=== PATIENT | male | born 1975 | race Caucasian/White ===

== ENCOUNTER 2019-09-07 01:13 | Observation (INO) | payer BC, SELFPAY ==
[2019-09-07] VITALS (7 sets, daily range): BP systolic 131–190; BP diastolic 84–129; PULSE 88–106; RESP 19–22; TEMP 36.8; O2SAT 97–99
--- NOTE | ~2019-09-07 | XR_ITS ---
EXAMINATION: XR chest 1V portable DATE: 09/07/2019 01:44 INDICATION: Slurred speech. TECHNIQUE: A single frontal view of the chest was obtained on 2 radiographs. COMPARISON: CT abdomen and pelvis 04/24/2004 FINDINGS: There is mild atelectasis at right lung base. No pleural effusion or pneumothorax. The hear t size is normal. IMPRESSION: 1. Mild atelectasis at right lung base. Reviewed, dictated and finalized at location A. CTOR OF COMMUNICATIONS
--- NOTE | ~2019-09-07 | CT_ITS ---
EXAMINATION: CT brain wo con DATE: 09/07/2019 01:40 INDICATION: Slurred speech and dizziness. Cerebrovascular accident. TECHNIQUE: Computed tomography (CT) of the head was performed without intravenous contrast. The mA wa s adjusted according to patient size. Iterative reconstruction technique was employed. The dose-lengt h product was 681.00 mGy-cm. COMPARISON: None FINDINGS: There is no intracranial hemorrhage, acute infarction, or abnormal intracranial mass lesion . The ventricles are normal in size. The orbits are normal. There is mild mucosal thickening in the p aranasal sinuses. The mastoid air cells are normal. IMPRESSION: 1. Normal brain. Reviewed, dictated and finalized at location A. NING AND DEVELOPMENT OFFICER IMPRESSION: 1. Normal brain.
--- NOTE | 2019-09-07 01:21 | ED.NEUROSD ---
HPI - Neuro Symptoms/Deficit General Chief Complaint: Suspected CVA Stated Complaint: HIGH B/P; POSSIBLE STROKE Time Seen by Provider: 09/07/19 01:19 Source: patient, family (pt's significant other) and RN notes reviewed Mode of arrival: wheelchair Limitations: no limitations History of Present Illness HPI Narrative: Pt is a 43 y/o male with a Hx of HTN, who presents to the ED with c/o slurred speech and dizziness starting roughly 4-5 hours ago this evening. He notes that he was previously prescribed BP medication, but states that he hasn't taken any BP medications for over 1 month. Pt's significant other notes that his BP has been elevated recently, stating that his systolic pressure has been in the 260's. He notes that he developed dizziness and slurred speech 4-5 hours ago. Pt states that it felt as though he wasn't able to fully control his top lip. His significant other notes that he was having difficulty walking, and states that his face appeared asymmetric. She notes that his face appears more symmetric currently in the ED bed. Pt notes that his speech is still slurred, but currently denies any dizziness, headache, CP, SOB, nausea, vomiting, ABD pain, focal weakness, or acute numbness/tingling. He states that he currently smokes 1 PPD and occasionally uses marijuana. Onset (ago): hour(s) (4-5) Location: speech and ataxia Context: sudden onset Associated symptoms: other (dizziness (resolved); facial asymmetry (per significant other)) Treatments Prior to Arrival: none Related Data Allergies Allergy/AdvReac Type Severity Reaction Status Date / Time Penicillins Allergy Unknown Unknown Verified 09/07/19 01:31 Review of Systems Review of Systems: All systems reviewed & are unremarkable except as noted in HPI and below Cardiovascular: Cardiovascular: Denies chest pain Respiratory: Respiratory: Denies dyspnea Gastrointestinal: Gastrointestinal: Denies abdominal pain, Denies nausea and Denies vomiting Neurologic: Reports Abnormal speech present (slurred speech), Reports abnormal gait, Reports dizziness (resolved), Denies headache(s), Denies focal weakness, Denies numbness, Denies tingling and Reports other (facial asymmetry (per significant other)) PMFSH Past Medical History Medical History Carpal tunnel syndrome on both sides HTN (hypertension) Kidney stones Leg fracture, right Right arm fracture Surgical History Surgical History Hx of arthroscopy of right knee Hx of carpal tunnel repair rt wrist Family History Family History (Updated 09/06/12 @ 14:45 by DOCTOR UNKNOWN) Other Carcinoma of colon Diabetes mellitus Family history of Alzheimer's disease Family history of coronary artery disease Family history of lung cancer Social History Social History Smoking packs per day: 1 Smoking cigarettes per day: 20.0 Smoking status: Current every day smoker Alcohol intake: current Substance use type: marijuana Exam Narrative: Exam Narrative: GENERAL: well-nourished, and in no acute distress. HEAD: Normocephalic, atraumatic EYES: PERRLA and EOMI, conjunctiva clear without discharge NOSE: Nares clear, no rhinorrhea or epistaxis THROAT:Mucous membranes moist, Oropharynx normal without erythema, exudate, peritonsillar swelling or fluctuance NECK: Supple, without lymphadenopathy or mass RESPIRATORY: No respiratory distress, Airway patent, Respirations non-labored, Clear to auscultation without rales, rhonchi or wheeze HEART: Regular rate and rhythm. No murmur heard. Normal peripheral pulses. ABDOMEN: Soft, nontender, nondistended, normal active bowel sounds. No masses. No rebound or guarding, No organomegaly. EXTREMITIES: No edema, normal strength with full range of motion. SKIN: Warm,diaphoretic, normal color without rash NEURO: Alert and orien
--- NOTE | 2019-09-07 01:29 | ECG_ITS ---
Measurements Intervals [place] Rate: 106 P: 48 FL: 140 QRS: -45 QRSD: 105 T: 78 QT: 357 QTc: 475 Interpretive Statements SINUS TACHYCARDIA LEFT AXIS DEVIATION DELAYED PRECORDIAL R/S TRANSITION INFERIOR INFARCT, AGE INDETERMINATE NONSPECIFIC ST & T-WAVE ABNORMALITY- LATERAL LEADS ABNORMAL ECG Electronically Signed On 09-07-2019 6:51:01 SOLAR ELECTRIC INSTALLER by Mohinder Felipe D.O.
[2019-09-07 01:40] LABS: Basophils Absolute Auto 0.1 K/mm3 (0.0-0.1); Basophils Percent Auto 0.7 % (0.2-1.2); Eosinophils Absolute Auto 0.1 K/mm3 (0-0.3); Eosinophils Percent Auto 1.3 % (0-4.4); Hematocrit 46.2 % (42.0-52.0); Hemoglobin 15.7 g/dL (14.0-18.0); Immature Granulocyte Absolute 0.03 K/mm3 (0.00-0.031); Immature Granulocyte Percent A 0.3 % (0-0.5); Lymphocytes Absolute Auto 3.44 K/mm3 (0.9-3.2); Lymphocytes Percent Auto 32.9 % (18.3-44.2); Mean Corpuscular Volume 94.1 fl (80-100); Mean Platelet Volume 11.7 fl (7.4-10.4); Monocytes Absolute Auto 1.1 K/mm3 (0.1-0.6); Monocytes Percent Auto 10.5 % (2.6-8.5); Neutrophils Absolute Auto 5.7 K/mm3 (1.3-6.7); Neutrophils Percent Auto 54.3 % (45.5-73.1); Platelet Count Result 248 k/mm3 (150-375); Red Blood Count 4.91 M/mm3 (4.6-6.20); Red Cell Distribution Width 12.6 % (11.5-14.5); White Blood Count 10.5 K/mm3 (4.5-10.0)
[2019-09-07 02:35] LABS: Ethanol < 10 mg/dL (<10)
[2019-09-07 02:36] LABS: Alanine Aminotransferase 33 U/L (4-50); Albumin Level 4.3 g/dL (3.5-5.1); Alkaline Phosphatase 81 U/L (38-126); Aspartate Amino Transferase 38 U/L (17-59); Bilirubin,Total 0.5 mg/dL (0.2-1.3); Blood Urea Nitrogen 16 mg/dL (9-20); Calcium 9.5 mg/dL (8.4-10.2); Carbon Dioxide 26 mmol/L (22-30); Chloride 105 mmol/L (98-107); Estimated CRCL calculation 107 ml/min; Estimated Glomerular Filt Rate > 60; Glucose 124 mg/dL (75-110); Potassium 3.6 mmol/L (3.4-5.0); Sodium 139 mmol/L (137-145)
--- NOTE | 2019-09-07 02:36 | PC.NURSE ---
Patient and his SO state patient is getting really anxious and has really bad restless legs. EDP notified.
[2019-09-07 02:46] LABS: Troponin I < 0.012 ng/mL (0.000-0.034)
[2019-09-07] MEDS: LABETALOL HCL INJ 100 MG/20 ML VIAL 20 MG IV PUSH (02:55)
[2019-09-07] MEDS: LORAZEPAM INJ 2 MG/ML VIAL 0.5 MG IV PUSH (02:55)
[2019-09-07 02:57] LABS: Add Urine Microscopic? YES; Appearance Urine Clear (Clear); Bacteria Urine Trace /hpf; Bilirubin Urine Negative (Negative); Blood Urine 2+ (Negative); Calcium Oxalate Crystals Urine Present /hpf; Color Urine Yellow (Yellow); Glucose Urine UA Negative (Negative); Ketones Urine Negative (Negative); Leukocyte Esterase Ur 1+ LEU/UL (Negative); Mucus Urine Moderate /lpf; Nitrate Urine Negative (Negative); Protein Urine 2+ mg/dL (Negative); RBC Urine >75 /hpf (0-2); Specific Grav Ur 1.025 (1.001-1.035); Squamous Epithelial Cell Urine Rare /hpf (Few); Urobilinogen Urine Negative mg/dL (<2.0); WBC Urine 31-50 /hpf
[2019-09-07 03:01] LABS: INR 0.9; Prothrombin Time 11.9 Seconds (11.1-14.7)
[2019-09-07 03:02] LABS: Partial Thromboplastin Time 28.5 SECONDS (22.3-36.8)
[2019-09-07 03:11] LABS: Barbiturate Screen Urine Negative (Negative); Benzodiazepines Screen Urine Negative (Negative)
[2019-09-07 03:27] LABS: Cannabinoid Screen Urine Positive (Negative); Cocaine Screen Urine Negative (Negative); Methadone Screen Urine Negative (Negative); Opiate Screen Urine Negative (Negative); Phencyclidine Screen Urine Negative (Negative)
[2019-09-07] MEDS: ASPIRIN 81 MG CHEWABLE TABLET 324 MG PO (04:07)
[2019-09-07 04:20] LABS: Amphetamine Screen Urine Positive (Negative)
--- NOTE | 2019-09-07 05:06 | PC.NURSE ---
Patient called this nurse into room and stated he wanted to leave and that I have so much I have to do. Patient was informed that he has been admitted and more testing was planned. Patient stated he wanted to leave and go home. This nurse and EDP informed patient on the risks of leaving AMA as well as the benefits of staying. Patient still stated he was leaving. Patient's IV was removed and patient left before any discharge papers were available. Patient had his with him.
[2019-09-07 14:21] LABS: Glucose Point of Care 159 (65-105)
== END 2019-09-07 05:35 | disposition left against medical advice (07) ==
LOC: ANHED 01:20 → ANH3MEDSUR 04:21
PROVIDERS: Admitting Provider Family Medicine; Emergency Provider General Practice; PCP Nurse Practitioner Family; Visit Provider Family Medicine
DX: I16.9 Hypertensive crisis, unspecified (principal); I10 Essential (primary) hypertension; R47.81 Slurred speech; R26.89 Other abnormalities of gait and mobility; F19.10 Other psychoactive substance abuse, uncomplicated; F17.210 Nicotine dependence, cigarettes, uncomplicated
CPT/HCPCS: 36415; 70450; 71045; 80053; 80307; 81001; 82948; 84484; 85025; 85610; 85730; 87086; 93005; 96374; 96375; 99199; 99284; A9270; J2060

== ENCOUNTER 2020-08-07 15:01 | Emergency (ER) | payer OTHER, SELFPAY ==
--- NOTE | ~2020-08-07 | XR_ITS ---
EXAMINATION: XR elbow RT min 3V DATE: 08/07/2020 15:23 INDICATION: Right elbow pain. TECHNIQUE: 3 views of right elbow were obtained. COMPARISON: None. FINDINGS: Bone alignment is normal. No fracture. There is mild osteoarthritis of the elbow joint. No elbow joint effusion. There is soft tissue swelling overlying the olecranon. IMPRESSION: 1. Mild elbow joint osteoarthritis. 2. Olecranon bursitis. Reviewed, dictated and finalized at location A. M SHOVEL RUNNER
[2020-08-07 15:21] VITALS: BP 172/101; PULSE 106; RESP 20; TEMP 36.1; O2SAT 98
--- NOTE | 2020-08-07 16:44 | ED.UPPEXIN ---
HPI - Extremity Injury (Upper) General Chief Complaint: Extremity Injury, Upper Stated Complaint: fall, right arm pain Time Seen by Provider: 08/07/20 16:43 History of Present Illness HPI narrative: 44 yo male presents to the ED with elbow pain. He reports that he slipped and fell onto his right elbow. He has severe pain in the right elbow. He denies previous injury. Related Data Home Medications Medication Instructions Recorded Confirmed hydrochlorothiazide 08/07/20 08/07/20 metoprolol tartrate 08/07/20 Allergies Allergy/AdvReac Type Severity Reaction Status Date / Time Penicillins Allergy Unknown Unknown Verified 08/07/20 16:22 Review of Systems Review of Systems: All systems reviewed & are unremarkable except as noted in HPI and below Constitutional: Constitutional: Denies chills, Denies fever(s) and Denies weakness Cardiovascular: Cardiovascular: Denies chest pain Respiratory: Respiratory: Denies dyspnea Gastrointestinal: Gastrointestinal: Denies abdominal pain and Denies nausea Neurologic: Denies dizziness, Denies numbness and Denies weakness [facility] Past Medical History Medical History (Updated 08/08/20 @ 00:00 by Nilton Boyce) Carpal tunnel syndrome on both sides HTN (hypertension) Kidney stones Leg fracture, right Right arm fracture Surgical History Surgical History Hx of arthroscopy of right knee Hx of carpal tunnel repair rt wrist Family History Family History (Updated 09/06/12 @ 14:45 by DOCTOR UNKNOWN) Other Carcinoma of colon Diabetes mellitus Family history of Alzheimer's disease Family history of coronary artery disease Family history of lung cancer Social History Social History (Updated 08/08/20 @ 19:[address] MD) Smoking packs per day: 1 Smoking cigarettes per day: 20.0 Smoking status: Current every day smoker Alcohol intake: current Substance use type: marijuana and IV drugs Gender identity (if verbalized by the patient): Male Exam Const: General: no acute distress and alert Orientation/consciousness: patient oriented x3 Other: diaphoretic HENMT: Head: normal to inspection Eyes: Pupils: Equal, round and reactive pupils present Resp: Effort & Inspection: normal respiratory effort Auscultation: clear to auscultation bilaterally Cardio: Rate: tachycardic Rhythm: regular rhythm GI: GI Palp: Yes Soft to palpation Auscultation: Hyperactive bowel sounds present Skin: General skin exam: normal color Other: diaphoretic Neuro: General: patient oriented x3, moves all extremities and CN's II-XI intact bilaterally Speech: normal speech Extrem: Other: Tenderness over triceps tendon. No objective sign of injury. Course Vital Signs Vital signs: Vital Signs Temperature 36.1 C L 08/07/20 15:21 Pulse Rate 106 H 08/07/20 15:21 Respiratory Rate 20 08/07/20 15:21 Blood Pressure 172/101 H 08/07/20 15:21 Pulse Oximetry 98 08/07/20 15:21 Temperature 36.1 C L 08/07/20 15:21 Pulse Rate 106 H 08/07/20 15:21 Respiratory Rate 20 08/07/20 15:21 Blood Pressure 172/101 H 08/07/20 15:21 Pulse Oximetry 98 08/07/20 15:21 MDM - Extremity Injury (Upper) MDM Narrative Medical decision making narrative: X-ray shows bursitis. Pain seems out of proportion to the injury. On review of the chart he does have h/o IV drug abuse. This is likely the reason Medical Records Attestation: I reviewed the patient's medical records. Imaging Data Radiologist's impression: ITS Impressions Elbow X-Ray 08/07/20 15:28 IMPRESSION: 1. Mild elbow joint osteoarthritis. 2. Olecranon bursitis. Discharge Plan Discharge Clinical Impression: Traumatic bursitis Patient Disposition: Home, Self-Care Condition: Stable Instructions: Elbow Bursitis (ED) Prescriptions: No Action metoprolol tartrate 50 mg tablet RF: 0 hydrochlorothia
[2020-08-07] MEDS: HYDROcodone/acetaminophen (*CRX) 5-325 MG TABLET 1 TAB PO (17:17)
== END 2020-08-07 17:31 | disposition home or self-care (01) ==
PROVIDERS: Emergency Provider Emergency Medicine; PCP Nurse Practitioner Family
DX: M70.21 Olecranon bursitis, right elbow (principal); I10 Essential (primary) hypertension; Z87.442 Personal history of urinary calculi; F17.210 Nicotine dependence, cigarettes, uncomplicated; M19.021 Primary osteoarthritis, right elbow; W01.0XXA Fall on same level from slipping, tripping and stumbling without subsequent striking against object, initial encounter
CPT/HCPCS: 73080; 99283; A9270

== ENCOUNTER 2021-01-27 12:25 | Emergency (ER) | payer OTHER, SELFPAY ==
[2021-01-27 12:34] VITALS: BP 160/111; PULSE 109; RESP 24; TEMP 37.2; O2SAT 98
--- NOTE | 2021-01-27 12:34 | ED.WOUNDLAC ---
HPI - Wound/Laceration General Chief Complaint: Wound/Laceration Stated Complaint: Gash on Left Leg Time Seen by Provider: 01/27/21 12:30 Source: patient and RN notes reviewed Mode of arrival: ambulatory Limitations: no limitations History of Present Illness HPI narrative: 45-year-old male presents to the [facility] with a wound to the left lower leg anterior. States that he hit it on the running boards of a truck. States that the wound occurred approximately 2 weeks ago. 1 week ago started becoming red and painful. Drainage started today. Has been using peroxide and Neosporin Related Data Home Medications Medication Instructions Recorded Confirmed hydrochlorothiazide 25 mg PO DAILY 08/07/20 08/07/20 metoprolol tartrate 100 mg PO DAILY 01/27/21 01/27/21 Allergies Allergy/AdvReac Type Severity Reaction Status Date / Time Penicillins Allergy Unknown Unknown Verified 01/27/21 12:33 Review of Systems Review of Systems: All systems reviewed & are unremarkable except as noted in HPI and below Constitutional: Constitutional: Reports no additional constitutional complaints, Denies chills and Denies fever(s) Eyes: Eyes: Reports no additional eye complaints ENT: Reports system reviewed and no additional complaints, except as documented Cardiovascular: Cardiovascular: Reports no additional cardiovascular complaints Respiratory: Respiratory: Reports no additional respiratory complaints Musculoskeletal: Musculoskeletal: Reports no additional musculoskeletal complaints, Denies back pain, Denies arthralgias and Denies joint swelling Integumentary/Breasts: Skin/Breast: Reports as per HPI and Reports erythema (left anterior lower leg) Neurologic: Reports system reviewed and no additional complaints, except as documented Psychiatric: Psychiatric: Reports no additional psychiatric complaints Allergic/Immunologic: Allergic/Immunologic: Reports no additional allergic/immunologic complaints [facility] Past Medical History Medical History (Updated 01/28/21 @ 00:01 by Nilton Boyce) Carpal tunnel syndrome on both sides HTN (hypertension) Kidney stones Leg fracture, right Right arm fracture Surgical History Surgical History Hx of arthroscopy of right knee Hx of carpal tunnel repair rt wrist Family History Family History (Updated 09/06/12 @ 14:45 by DOCTOR UNKNOWN) Other Carcinoma of colon Diabetes mellitus Family history of Alzheimer's disease Family history of coronary artery disease Family history of lung cancer Social History Social History (Updated 08/08/20 @ 19:[address] MD) Smoking packs per day: 1 Smoking cigarettes per day: 20.0 Smoking status: Current every day smoker Alcohol intake: current Substance use type: marijuana and IV drugs Gender identity (if verbalized by the patient): Male Comments At the time of my signature, I reviewed and agree with the nursing past medical, surgical, social, and family history. There is no relevant family history pertinent to the patient complaint. Exam Const: General: healthy appearing, no acute distress and alert Nutritional Appearance: well nourished Orientation/consciousness: patient oriented x3 Limitations: no limitations HENMT: Head: normal to inspection Eyes: Pupils: Equal, round and reactive pupils present Neck: Neck: normal visual inspection, no lymphadenopathy and no meningeal signs Chest: Chest palpation & inspection: normal inspection of the chest Resp: Effort & Inspection: normal respiratory effort and no use of accessory muscles Auscultation: clear to auscultation bilaterally, no crackles, no rales, no rhonchi and no wheezes Cardio: Rate: regular rate Rhythm: regular rhythm Back/Spine/Pelvis: Back: no CVA tenderness Skin: Wounds: wounds noted left anterior lower leg drainage purulent and with surrounding erythema Other: 2 x 1 cm open area that is scabbe
[2021-01-27 13:19] VITALS: BP 147/104; PULSE 102; RESP 20; O2SAT 98
== END 2021-01-27 13:27 | disposition home or self-care (01) ==
PROVIDERS: Emergency Provider Nurse Practitioner; PCP Nurse Practitioner Family
DX: L08.9 Local infection of the skin and subcutaneous tissue, unspecified (principal); S81.802A Unspecified open wound, left lower leg, initial encounter; W22.8XXA Striking against or struck by other objects, initial encounter; F17.210 Nicotine dependence, cigarettes, uncomplicated; I10 Essential (primary) hypertension
CPT/HCPCS: 99213; G0463

== ENCOUNTER 2021-04-14 06:06 | Emergency (ER) | payer OTHER, SELFPAY ==
--- NOTE | ~2021-04-14 | XR_ITS ---
XR tibia fibula LT 2V DATE: 04/14/2021 09:52 INDICATION: Left lower leg injury, pain TECHNIQUE: AP and lateral views COMPARISON: None FINDINGS: Prominent superior pole patellar enthesopathy at the quadriceps tendon insertion. Normal alignment at the knee and ankle joints. No fracture, dislocation, periosteal reaction or bone destruction of the tibia or fibula. IMPRESSION: Superior pole patellar enthesopathy No fracture or dislocation Reviewed, dictated and finalized at location B.
--- NOTE | ~2021-04-14 | US_ITS ---
US venous doppler [facility] DATE: 04/14/2021 08:20 INDICATION: Leg pain for 2 months. Open skin wound. TECHNIQUE: Real-time imaging and Doppler analysis COMPARISON: None FINDINGS: There is spontaneous and phasic flow and normal augmentation and color flow signal and norm al compression of the femoral, popliteal and posterior tibial veins veins of the left lower extremity . The peroneal veins are not well demonstrated due to edema in the area. IMPRESSION: No deep venous thrombosis is demonstrated; limited visualization of the peroneal veins du e to edema Reviewed, dictated and finalized at Location A. Reviewed, dictated and finalized at location A. IMPRESSION: No deep venous thrombosis is demonstrated; limited visualization of the peroneal veins due to edema
[2021-04-14 06:22] VITALS: BP 180/140; PULSE 107; RESP 16; TEMP 37.2; O2SAT 94
[2021-04-14 07:25] VITALS: PULSE 97; RESP 22; O2SAT 98
--- NOTE | 2021-04-14 07:47 | ED.GENADULT ---
HPI - General Adult General Chief complaint: Extremity Problem,Nontraumatic Stated complaint: Left ankle pain Time Seen by Provider: 04/14/21 07:06 Source: patient History of Present Illness HPI narrative: Patient is a 45 y/o male complaining of left lower leg pain for last 2 months. He states that he was hit by a board approximately 2 month ago which caused a open wound. He subsequently underwent surgery for debridement at outside hospital. He describes his pain as burning and rates it as 1/10. However, he states that his pain goes up to 10/10 sometimes. There is no known alleviating or exacerbating factor. He still has open wound on left lower leg with surround redness. He has some left foot swelling. He has history of hypertension, but has been non compliant with medication for a while. He is not sure what BP medication he is supposed to be on. Related Data Home Medications Medication Instructions Recorded Confirmed hydrochlorothiazide 25 mg PO DAILY 08/07/20 08/07/20 metoprolol tartrate 100 mg PO DAILY 01/27/21 01/27/21 Allergies Allergy/AdvReac Type Severity Reaction Status Date / Time Penicillins Allergy Unknown Unknown Verified 04/14/21 06:25 Review of Systems Constitutional: Constitutional: Denies chills, Denies fever(s), Denies headache(s) and Denies weakness Eyes: Eyes: Denies blurry vision ENT: Denies headache(s) and Denies neck pain Cardiovascular: Cardiovascular: Denies chest pain and Denies dyspnea Respiratory: Respiratory: Denies cough and Denies dyspnea Gastrointestinal: Gastrointestinal: Denies abdominal pain, Denies diarrhea, Denies nausea and Denies vomiting Genitourinary: Genitourinary: Denies hematuria and Denies dysuria Musculoskeletal: Musculoskeletal: Reports as per HPI, Denies back pain, Denies neck pain and Reports other (left leg pain) Integumentary/Breasts: Skin/Breast: Reports erythema Neurologic: Denies headache(s) and Denies weakness PMFSH Past Medical History Medical History Carpal tunnel syndrome on both sides HTN (hypertension) Kidney stones Leg fracture, right Right arm fracture Surgical History Surgical History Hx of arthroscopy of right knee Hx of carpal tunnel repair rt wrist Family History Family History Other Carcinoma of colon Diabetes mellitus Family history of Alzheimer's disease Family history of coronary artery disease Family history of lung cancer Social History Social History Smoking packs per day: 1 Smoking cigarettes per day: 20.0 Smoking status: Current every day smoker Alcohol intake: current Substance use type: marijuana and IV drugs Gender identity (if verbalized by the patient): Male Exam Const: General: no acute distress and well developed Orientation/consciousness: oriented to person, oriented to place, oriented to time and patient oriented x3 HENMT: Head: normocephalic Ears: external ears normal General nose exam: Normal external nose present Eyes: General: appearance normal, both eyes and all related structures Conjunctivae: conjunctivae normal Neck: Neck: normal visual inspection and full ROM Chest: Chest palpation & inspection: normal inspection of the chest and no tenderness Resp: Effort & Inspection: normal respiratory effort Auscultation: clear to auscultation bilaterally Cardio: Rate: regular rate Rhythm: regular rhythm GI: GI Palp: No abdominal tenderness and Yes Soft to palpation Skin: General skin exam: normal color, turgor normal and erythema (left lower leg surround the wound) Wounds: wounds noted (open wound left lower leg, no drainage) Neuro: General: oriented to person, oriented to place, oriented to time and patient oriented x3 Cognition (Neuro): normal cognition Extrem: General: no
[2021-04-14 09:20] LABS: Anion Gap 9 mmol/L (8-16); Blood Urea Nitrogen 15 mg/dL (9-20); CRP 1.2 mg/dL (<1.0); Calcium 8.8 mg/dL (8.4-10.2); Carbon Dioxide 29 mmol/L (22-30); Chloride 103 mmol/L (98-107); Estimated CRCL calculation 106 ml/min; Estimated Glomerular Filt Rate > 60; Glucose 125 mg/dL (65-110); Potassium 3.7 mmol/L (3.4-5.0); Sodium 141 mmol/L (137-145)
[2021-04-14 09:22] LABS: Basophils Percent Auto 0.4 % (0.2-1.2); Eosinophils Absolute Auto 0.1 K/mm3 (0-0.3); Eosinophils Percent Auto 1.3 % (0-4.4); Hemoglobin 14.2 g/dL (14.0-18.0); Immature Granulocyte Absolute 0.03 K/mm3 (0.00-0.031); Immature Granulocyte Percent A 0.3 % (0-0.5); Lymphocytes Absolute Auto 2.13 K/mm3 (0.9-3.2); Lymphocytes Percent Auto 21.1 % (18.3-44.2); Mean Corpuscular HGB Conc 33.8 g/dl (32-36); Mean Corpuscular Hemoglobin 32.9 pg (26-34); Mean Corpuscular Volume 97.2 fl (80-100); Mean Platelet Volume 11.7 fl (7.4-10.4); Monocytes Percent Auto 9.6 % (2.6-8.5); Neutrophils Absolute Auto 6.8 K/mm3 (1.3-6.7); Neutrophils Percent Auto 67.3 % (45.5-73.1); Platelet Count Result 194 k/mm3 (150-375); Red Blood Count 4.32 M/mm3 (4.6-6.20); Red Cell Distribution Width 13.2 % (11.5-14.5); White Blood Count 10.1 K/mm3 (4.5-10.0)
[2021-04-14 09:48] LABS: Erythrocyte Sedimentation Rate 25 mm/hr (0-20)
[2021-04-14] MEDS: hydroCHLOROthiazide 25 MG TABLET PO (10:10)
[2021-04-14] MEDS: lisinopriL 20 MG TABLET PO (10:10)
--- NOTE | 2021-04-14 10:46 | PC.NURSE ---
Pt states that he does have Hx of IV drug use, but has been clean from IV drugs for about 10yrs. admits to snorting cocaine on occasion for fun
[2021-04-14 11:35] VITALS: BP 203/155; PULSE 92; RESP 20; O2SAT 97
[2021-04-14 13:26] VITALS: BP 164/133; PULSE 94; RESP 16; O2SAT 100
== END 2021-04-14 13:28 | disposition home or self-care (01) ==
PROVIDERS: Emergency Provider Emergency Medicine; PCP Nurse Practitioner Family
DX: L03.116 Cellulitis of left lower limb (principal); I10 Essential (primary) hypertension; F17.210 Nicotine dependence, cigarettes, uncomplicated; Z87.442 Personal history of urinary calculi
CPT/HCPCS: 36415; 73590; 80048; 85025; 85652; 86140; 87040; 93971; 96365; 96367; 99284; A9270; J0696; J3370

== ENCOUNTER 2022-08-01 20:36 | Emergency (ER) | payer OTHER, SELFPAY ==
[2022-08-01] VITALS (14 sets, daily range): BP systolic 159–166; BP diastolic 96–102; PULSE 74–82; RESP 13–26; TEMP 36.4; O2SAT 87–96
--- NOTE | ~2022-08-01 | CT_ITS ---
EXAMINATION: CTA chest PE protocol DATE: 08/02/2022 09:11 HYPERBARIC NURSE INDICATION: Shortness of breath. Elevated d-dimer. TECHNIQUE: Computed tomographic angiography (CTA) of the chest was performed with 100 mL Omnipaque-35 0 intravenous contrast. The dose-length product was 891.27 mGy-cm. Maximum intensity projection 3D-re constructions of the aorta and other arteries were constructed by the technologist on a separate work station. Automated exposure control and iterative reconstruction technique were employed. COMPARISON: None. FINDINGS: Study is technically adequate without evidence for pulmonary embolism. Cardiomegaly. No sig nificant pleural or pericardial effusion. No thoracic lymphadenopathy. Fatty infiltration of the live r. Colonic diverticulosis. No focal airspace consolidation. No endobronchial lesions. There is depend ent atelectasis. No pneumothorax. No suspicious pulmonary nodules. IMPRESSION: 1. No acute cardiopulmonary disease. 2: Cardiomegaly. Reviewed, dictated and finalized at location A. RBARIC NURSE
--- NOTE | ~2022-08-01 | XR_ITS ---
EXAMINATION: XR chest 2V DATE: 08/01/2022 21:16 INDICATION: Chest pain. Shortness of breath. TECHNIQUE: Frontal and lateral views of the chest were obtained. COMPARISON: Chest single view 09/07/2019 FINDINGS: The chest demonstrates clear lungs without pneumonia, pleural effusion, or pneumothorax. Th e heart size is normal. There is an old healed fracture of left clavicle. IMPRESSION: 1. No acute cardiopulmonary disease. Reviewed, dictated and finalized at location A. [employer] SUPERVISOR
--- NOTE | 2022-08-01 20:39 | ECG_ITS ---
Measurements Intervals [place] Rate: 77 P: 15 CT: 195 QRS: -44 QRSD: 102 T: 38 QT: 434 QTc: 492 Interpretive Statements SINUS RHYTHM INCOMPLETE RIGHT BUNDLE BRANCH BLOCK POOR R WAVE PROGRESSION, ANTERIOR LEADS INFERIOR INFARCT, AGE INDETERMINATE BORDERLINE T WAVE ABNORMALITY- ANTERIOR LEADS BASELINE WANDER- V1 ABNORMAL ECG COMPARED TO ECG 09/07/2019 01:20:55 SINUS RHYTHM NOW PRESENT Electronically Signed On 08-02-2022 7:39:05 REGIONAL SALES REPRESENTATIVE by Mohinder Felipe D.O.
--- NOTE | 2022-08-01 21:07 | PC.NURSE ---
Patient taken to xray via stretcher at this time.
[2022-08-01 21:19] LABS: Basophils Absolute Auto 0.1 K/mm3 (0.0-0.1); Basophils Percent Auto 0.4 % (0.2-1.2); Eosinophils Absolute Auto 0.1 K/mm3 (0-0.3); Eosinophils Percent Auto 0.9 % (0-4.4); Hematocrit 49.2 % (42.0-52.0); Hemoglobin 16.8 g/dL (14.0-18.0); Immature Granulocyte Absolute 0.04 K/mm3 (0.00-0.031); Immature Granulocyte Percent A 0.3 % (0-0.5); Lymphocytes Absolute Auto 4.68 K/mm3 (0.9-3.2); Lymphocytes Percent Auto 33.6 % (18.3-44.2); Mean Corpuscular HGB Conc 34.1 g/dl (32-36); Mean Corpuscular Hemoglobin 32.8 pg (26-34); Mean Corpuscular Volume 96.1 fl (80-100); Mean Platelet Volume 11.4 fl (7.4-10.4); Monocytes Absolute Auto 1.3 K/mm3 (0.1-0.6); Neutrophils Absolute Auto 7.8 K/mm3 (1.3-6.7); Neutrophils Percent Auto 55.8 % (45.5-73.1); Platelet Count Result 241 k/mm3 (150-375); Red Blood Count 5.12 M/mm3 (4.6-6.20); Red Cell Distribution Width 13.1 % (11.5-14.5); White Blood Count 13.9 K/mm3 (4.5-10.0)
[2022-08-01 21:22] LABS: Prothrombin Time 12.5 Seconds (11.1-14.7)
[2022-08-01 21:23] LABS: Chloride 102 mmol/L (98-107); Partial Thromboplastin Time 25.6 SECONDS (22.3-36.8)
--- NOTE | 2022-08-01 21:24 | ED.SOB ---
HPI - SOB/Dyspnea General Chief Complaint: Shortness of Breath/Dyspnea <NINA Gonzalez Last Filed: 08/02/22 02:31> Stated Complaint: Shortness of Breath <NINA Gonzalez Last Filed: 08/02/22 02:31> Time Seen by Provider: 08/01/22 20:40 <NINA Gonzalez Last Filed: 08/02/22 02:31> Source: patient <NINA Gonzalez Last Filed: 08/02/22 02:31> Mode of arrival: ambulatory <NINA Gonzalez Last Filed: 08/02/22 02:31> Limitations: no limitations <NINA Gonzalez Last Filed: 08/02/22 02:31> History of Present Illness HPI Narrative: This is a 46 year old male that presents to the ER for shortness of breath. Ongoing since yesterday. Reports he feels like he can't catch his breath. Reports pain with deep breathing. Reports he was started on his blood pressure medications again yesterday after being off of them for several months and is attributing his symptoms to this. Reports some ongoing lower extremity edema. Denies fever or cough. <NINA Gonzalez Last Filed: 08/02/22 02:31> Related Data Home Medications: Home Medications Medication Instructions Recorded Confirmed hydrochlorothiazide 25 mg tablet 25 mg PO DAILY 08/07/20 08/07/20 metoprolol tartrate 100 mg tablet 100 mg PO DAILY 01/27/21 01/27/21 <NINA Gonzalez Last Filed: 08/02/22 02:31> Allergies/Adverse Reactions: Allergies Allergy/AdvReac Type Severity Reaction Status Date / Time Penicillins Allergy Unknown Unknown Verified 04/14/21 06:25 <NINA Gonzalez Last Filed: 08/02/22 02:31> Review of Systems Review of Systems: CONSTITUTIONAL: Denies fever CARDIOVASCULAR: Reports chest pain, and edema. RESPIRATORY: Reports dyspnea. Denies cough <NINA Gonzalez Last Filed: 01/29/23 02:31> All systems reviewed & are unremarkable except as noted in HPI and below <Soledad Saucedo PA-C - Last Filed: 08/02/22 02:31> [facility] Past Medical History Medical History: Medical History Carpal tunnel syndrome on both sides HTN (hypertension) Kidney stones Leg fracture, right Right arm fracture <Soledad Saucedo PA-C - Last Filed: 08/02/22 02:31> Surgical History Surgical History: Surgical History Hx of arthroscopy of right knee Hx of carpal tunnel repair rt wrist <NINA Gonzalez Last Filed: 08/02/22 02:31> Family History Family History: Family History Other Carcinoma of colon Diabetes mellitus Family history of Alzheimer's disease Family history of coronary artery disease Family history of lung cancer <NINA Gonzalez Last Filed: 08/02/22 02:31> Social History Social History: Social History Smoking packs per day: 1 Smoking cigarettes per day: 20.0 Smoking status: Current every day smoker Alcohol intake: current Substance use type: marijuana and IV drugs Gender identity (if verbalized by the patient): Male <NINA Gonzalez Last Filed: 08/02/22 02:31> Exam Narrative: GENERAL: Well-appearing, well-nourished, and in no acute distress. HEAD: Normocephalic, atraumatic. EYES: EOMI. ENT: Nares clear, no rhinorrhea or epistaxis. Mucous membranes moist. Oropharynx without tonsillar hypertrophy exudate or other lesions. CHEST: Clear to auscultation. No respiratory distress. No wheezes rales or rhonchi HEART: Regular rate and rhythm. No murmur heard. Normal peripheral pulses. EXTREMITIES: Normal range of motion. Mild nonpitting edema to the bilateral lower extremities SKIN: Warm, dry, no rash. NEURO: No focal deficits. Alert and oriented x3. PSYCH: Normal mood and affect <Soledad Saucedo PA-C - Last Filed: 08/02/22 02:31> Course Course Emergency Course: [place]
[2022-08-01 21:25] LABS: NT Pro B Type Natriuretic Pept 788 pg/mL (19.9-100)
[2022-08-01 21:26] LABS: Alanine Aminotransferase 38 U/L (6-50); Alkaline Phosphatase 82 U/L (38-126); Anion Gap 8 mmol/L (8-16); Aspartate Amino Transferase 39 U/L (17-59); Bilirubin,Total 0.5 mg/dL (0.2-1.3); Blood Urea Nitrogen 20 mg/dL (9-20); Calcium 8.7 mg/dL (8.4-10.2); Carbon Dioxide 29 mmol/L (22-30); Estimated CRCL calculation 90 ml/min; Estimated Glomerular Filt Rate > 60; Glucose 127 mg/dL (65-110); Sodium 139 mmol/L (137-145)
[2022-08-01 21:55] LABS: Lipase 81 U/L (23-300)
[2022-08-01] MEDS: ONDANSETRON INJ 4 MG/2 ML VIAL IV PUSH (22:01)
[2022-08-01 22:04] LABS: D Dimer 0.57 ug/mL (<0.48)
[2022-08-01 22:15] LABS: Troponin I 0.014 ng/mL (0.000-0.034)
[2022-08-02 00:23] VITALS: PULSE 79
[2022-08-02 00:30] VITALS: PULSE 77
[2022-08-02 00:51] VITALS: PULSE 77; RESP 19
[2022-08-02 01:09] VITALS: PULSE 81; RESP 26
[2022-08-02 01:16] VITALS: PULSE 82; RESP 23; O2SAT 96
--- NOTE | 2022-08-02 01:30 | PC.NURSE ---
Phlebotomy called to draw 3 hour. Multiple attempts unsuccessful.
--- NOTE | 2022-08-02 01:38 | PC.NURSE ---
Plebotomy here to draw patient.
--- NOTE | 2022-08-02 01:51 | PC.NURSE ---
Patient tough stick, unable to draw delta trop by this RN, and 2 botanical technical officer as well as phlebotomy. ERP notified.
--- NOTE | 2022-08-02 02:19 | PC.NURSE ---
Patient states he wants to leave AMA. Patient told ERP. Patient states I'll sign what I need to but I don't want to stay. Patient informed of the risks of leaving and that he required oxygen while in the ED. Patient a/ox x3. Patient states I know, I want to leave. I know the risks. Patient signed AMA form. Patient has family here with him.
[2022-08-02 02:39] LABS: Troponin I 0.022 ng/mL (0.000-0.034)
== END 2022-08-02 02:31 | disposition left against medical advice (07) ==
PROVIDERS: Physician Assistant; Emergency Provider Emergency Medicine; PCP Nurse Practitioner Family
DX: R06.01 Orthopnea (principal); I10 Essential (primary) hypertension; Z87.442 Personal history of urinary calculi; F17.210 Nicotine dependence, cigarettes, uncomplicated; T46.5X5A Adverse effect of other antihypertensive drugs, initial encounter; I45.10 Unspecified right bundle-branch block; R94.31 Abnormal electrocardiogram [ECG] [EKG]
CPT/HCPCS: 36415; 71046; 71275; 80053; 83690; 83880; 84484; 85025; 85380; 85610; 85730; 93005; 96374; 99284; J2405; Q9967

== ENCOUNTER 2023-02-19 11:40 | Emergency (ER) | payer OTHER, SELFPAY ==
--- NOTE | 2023-02-19 11:43 | ED.WOUNDLAC ---
HPI - Wound/Laceration General Chief Complaint: Wound/Laceration Stated Complaint: cut on right foot Time Seen by Provider: 02/19/23 11:43 Source: patient Mode of arrival: ambulatory Limitations: no limitations History of Present Illness HPI narrative: Gustavo is a 47-year-old male patient presenting to the clinic today with complaints of a cut/open wound to his right foot. He reports has a open wound to the right heel. 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 Blood pressure is extremely elevated in the clinic today. Patient denies any dizziness, headaches, or visual changes. He does report that he has had a history of strokes in the past. Patient is noncompliant with his medications and does not currently take any blood pressure medication Related Data Allergies Allergy/AdvReac Type Severity Reaction Status Date / Time Penicillins Allergy Unknown Unknown Verified 02/19/23 11:46 Review of Systems Review of Systems: Pertinent positives per HPI. Patient denies any fever, chills, rash, headache, visual changes, dizziness, cough, runny nose, sore throat, shortness of breath, chest pain, palpitations, nausea, vomiting, diarrhea, constipation, abdominal pain, or any urinary issues. [facility] Past Medical History Medical History Carpal tunnel syndrome on both sides HTN (hypertension) Kidney stones Leg fracture, right Right arm fracture Surgical History Surgical History Hx of arthroscopy of right knee Hx of carpal tunnel repair rt wrist Family History Family History Other Carcinoma of colon Diabetes mellitus Family history of Alzheimer's disease Family history of coronary artery disease Family history of lung cancer Social History Social History Smoking packs per day: 1 Smoking cigarettes per day: 20.0 Smoking status: Current every day smoker Alcohol intake: current Substance use type: marijuana and IV drugs Gender identity (if verbalized by the patient): Male Comments At the time of my signature, I reviewed and agree with the nursing past medical, surgical, social, and family history. There is no relevant family history pertinent to the patient complaint. Exam Narrative: General: Well-developed, well nourished, in no apparent distress Head: Normocephalic, atraumatic. Cardio: Regular rate and rhythm, s1 and s2 normal, no murmur appreciated. Resp: Clear to auscultation bilaterally, no rhonchi, rales, wheezing or rubs. Extremities: No deformity, 2+ pitting edema in bilateral lower extremities with varicose veins and scabbed and open venous ulcers, wound that concerns the patient measure 1 x 1 cm to the right medial heel, mild redness noted around without drainage, non induration, no cyanosis, capillary refill less than 2 seconds, peripheral pulses palpable and strong. Course Course Emergency Course: Portions of this record may have been created with voice recognition software. Level of Care: Express Care Visit Vital Signs Vital signs: Vital Signs Temperature 36.7 C 02/19/23 11:47 Pulse Rate 99 02/19/23 11:47 Respiratory Rate 18 02/19/23 11:47 Blood Pressure 194/129 H 02/19/23 11:47 Pulse Oximetry 98 02/19/23 11:47 Oxygen Delivery Room Air 02/19/23 11:47 Temperature 36.7 C 02/19/23 11:47 Pulse Rate 99 02/19/23 11:47 Respiratory Rate 18 02/19/23 11:47 Blood Pressure 181/134 H 02/19/23 12:04 Pulse Oximetry 98 02/19/23 11:47 Oxygen Delivery Room Air 02/19/23 11:47 Vital signs reviewed MDM - Wound/Laceration MDM Narrative Medical decision making narrative: At the time of visit patient is resting comfortably on the exam table. I suspect patient
[2023-02-19 11:47] VITALS: BP 194/129; PULSE 99; RESP 18; TEMP 36.7; O2SAT 98
[2023-02-19 12:04] VITALS: BP 181/134
== END 2023-02-19 12:09 | disposition home or self-care (01) ==
PROVIDERS: Emergency Provider Nurse Practitioner Family; PCP Nurse Practitioner Family
DX: I16.0 Hypertensive urgency (principal); I87.2 Venous insufficiency (chronic) (peripheral); F17.210 Nicotine dependence, cigarettes, uncomplicated; I10 Essential (primary) hypertension; Z86.73 Personal history of transient ischemic attack (TIA), and cerebral infarction without residual deficits
CPT/HCPCS: 99213; G0463